=== PATIENT | female | born 1970 | race Caucasian/White ===

== ENCOUNTER 2017-03-12 09:09 | Emergency (ER) | payer BC ==
[2017-03-12] MEDS ORDERED: oxyCODONE/Acetamin 5/325 MG* TAB PO ONE (09:48)
--- NOTE | 2017-03-12 10:13 | RAD ---
HISTORY: Right forearm, COMPARISONS: None relevant VIEWS: 2, Frontal and lateral views of the right forearm FINDINGS: BONE DENSITY: Normal. BONES: There is no displaced fracture. JOINTS: There is no arthropathy. ALIGNMENT: There is no dislocation. SOFT TISSUES: Unremarkable. OTHER FINDINGS: None. IMPRESSION: NO ACUTE OSSEOUS INJURY. IF SYMPTOMS PERSIST, RECOMMEND REPEAT IMAGING.
--- NOTE | 2017-03-12 10:14 | RAD ---
HISTORY: Right forearm trauma COMPARISONS: None VIEWS: 4, Frontal, lateral, and oblique views of the right elbow FINDINGS: BONE DENSITY: Normal. BONES: There is no displaced fracture. JOINTS: There is no arthropathy. There is no posterior supracondylar fat pad to suggest a joint effusion. ALIGNMENT: There is no dislocation. SOFT TISSUES: Unremarkable. OTHER FINDINGS: None. IMPRESSION: NO ACUTE OSSEOUS INJURY. IF SYMPTOMS PERSIST, RECOMMEND REPEAT IMAGING.
--- NOTE | 2017-03-12 10:14 | RAD ---
HISTORY: Right forearm trauma COMPARISONS: None VIEWS: 3, Frontal, lateral, and oblique views of the right wrist FINDINGS: BONE DENSITY: Normal. BONES: There is no displaced fracture. JOINTS: There is no arthropathy. ALIGNMENT: There is no dislocation. SOFT TISSUES: Unremarkable. OTHER FINDINGS: None. IMPRESSION: NO ACUTE OSSEOUS INJURY. IF SYMPTOMS PERSIST, RECOMMEND REPEAT IMAGING.
--- NOTE | 2017-03-12 10:32 | ED ---
Upper Extremity Pain - HPI Summary HPI Summary: 46F presents with right arm injury s/p getting kicked by horse today. She states the she was bending down the horse kicked her right forearm. She state the pain is intense. She denies any previous fx to arm. She is right handed. She has old contusion from a week ago when a cow hit her humerus. She has limited ROM of arm due to pain. Her said she was wrenching from pain. He states he didn't see her pass out but states she might have passed out on bench from pain. The pt says she did not pass out. She states the only times she passes out is from pain. She denies any chest pain or SOB. She denies another injury. She states pain refers down to right hand. She has not taken anything for pain. - History of Current Complaint Chief Complaint: EDExtremityUpper Stated Complaint: RIGHT ARM INJURY KICKED BY HORSE Time Seen by Provider: 03/12/17 09:34 Hx Last Menstrual Period: post - Allergies/Home Medications Allergies/Adverse Reactions: Allergies Allergy/AdvReac Type Severity Reaction Status Date / Time No Known Allergies Allergy Verified 03/12/17 09:14 PMH/Surg Hx/FS Hx/Imm Hx Endocrine/Hematology History: Denies: Hx Anticoagulant Therapy Respiratory History: Reports: Hx Asthma - Cancer History Hx Chemotherapy: No Hx Radiation Therapy: No - Surgical History Surgery Procedure, Year, and Place: cyst right breast, bilat augmentation Infectious Disease History: No Infectious Disease History: Denies: Hx Clostridium Difficile, Hx Hepatitis, Hx Human Immunodeficiency Virus (HIV), Hx of Known/Suspected MRSA, Hx Shingles, Hx Tuberculosis, Hx Known/ Suspected VRE, Hx Known/Suspected VRSA, History Other Infectious Disease, Traveled Outside the [place] in Last 30 Days - Family History Known Family History: Positive: Cardiac Disease, Diabetes - Social History Alcohol Use: Weekly Alcohol Amount: beer Substance Use Type: Reports: None Smoking Status (MU): Never Smoked Tobacco Review of Systems Negative: Fever Negative: Chest Pain Negative: Shortness Of Breath Positive: Myalgia - right forearm Positive: Bruising - right arm All Other Systems Reviewed And Are Negative: Yes Physical Exam Triage Information Reviewed: Yes Vital Signs On Initial Exam: Initial Vitals Temp Pulse Resp BP Pulse Ox 98.0 F 81 18 129/88 100 03/12/17 09:15 03/12/17 09:15 03/12/17 09:15 03/12/17 09:15 03/12/17 09:15 Vital Signs Reviewed: Yes Appearance: Positive: Well-Appearing Skin: Positive: Warm, Dry Head/Face: Positive: Normal Head/Face Inspection Eyes: Positive: Normal, Conjunctiva Clear Respiratory/Lung Sounds: Positive: Clear to Auscultation, Breath Sounds Present Cardiovascular: Positive: Normal, RRR Musculoskeletal: Positive: Limited @ - elbow due pain, Edema Right - forearm, Other - no step off, neg snuff box tenderness, good pulses, capillary refill < 2 secs, greatest tenderness midforarm - Chelsie Coma Scale Coma Scale Total: 15 Diagnostics - Vital Signs Vital Signs Temp Pulse Resp BP Pulse Ox 03/12/17 10:10 20 03/12/17 09:37 12 03/12/17 09:35 133/79 03/12/17 09:15 98.0 F 81 18 129/88 100 - Laboratory Lab Results: Lab Results 03/12/17 Range/Units 10:12 POC Glucose (mg/dL) 90 (74-106) mg/dL Lab Statement: Any lab studies that have been ordered have been reviewed, and results considered in the medical decision making process. - Radiology wrist, elbow, forearm Xray Interpretation: No Acute Changes Radiology Interpretation Completed By: Radiologist - EKG No standard instances Cardiac Rate: NL EKG Rhythm: Sinus Rhythm Course/Dx - Course Course Of Treatment: 46F presents with right arm pain s/p getting kicked by horse in forearm. states is having extreme pain. says may have passed out. pt says did not and would have been from pain. discussed patient does not want potential syncope work up as states if passed out was from pain, did check finger stick glucose which was 90 as patient did not eat today, ekg normal. no step of felt on exam of arm, neurovascular intact, edema noted to right forearm. xray normal. will treat as contusion with RICE. patient understands and agrees with plan - Diagnoses Differential Diagnosis/HQI/PQRI: Positive: Contusion, Fracture (Closed), Strain , Sprain Provider Diagnoses: Contusion of right arm Discharge - Discharge Plan Condition: Good Disposition: HOME Prescriptions: oxyCODONE/Acetamin 5/325 MG* [Percocet 5/325 TAB*] 1 tab PO Q6H PRN #8 tab MDD 4 PRN Reason: Pain Patient Education Materials: Contusion in Adults (ED) Forms: *Work Release Referrals: Eliazar Cancino MD [Primary Care Provider] - Additional Instructions: Take ibuprofen for pain every 6 hours up to 800mg, take narcotic for break through pain Ice for next [address] heat and massage area Elevate, apply TISH to area, rest area Return to ED if develop any new or worsening symptoms
[2017-03-12 10:35] VITALS: BP 143/95
== END 2017-03-12 10:54 | disposition home or self-care (01) ==
LOC: ED 09:09
DX: S40.021A Contusion of right upper arm, initial encounter (principal); W55.12XA Struck by horse, initial encounter; Y93.9 Activity, unspecified; Y92.9 Unspecified place or not applicable
CPT/HCPCS: 93005; 99282; A9270-GY

== ENCOUNTER 2017-05-20 00:02 | Emergency (ER) | payer BC, OTHER ==
[2017-05-20 00:30] VITALS: BP 133/84
[2017-05-20 01:11] LABS: Hematocrit 40 % (35-47); Hemoglobin 13.6 g/dl (12.0-16.0); Mean Corpuscular HGB Conc 34 g/dl (31-36); Mean Corpuscular Hemoglobin 34 pg (27-31); Mean Corpuscular Volume 98 fL (80-97); Mean Platelet Volume 7 um3 (7.4-10.4); Red Blood Count 4.05 10^6/ul (4.0-5.4); Red Cell Distribution Width 13 % (10.5-15); White Blood Count 6.3 10^3/ul (3.5-10.8)
[2017-05-20 01:12] LABS: Urine Bilirubin Negative (Negative); Urine Glucose Negative (Negative); Urine Nitrite Negative (Negative)
[2017-05-20 01:20] LABS: ALT 13 U/L (7-52); AST 16 U/L (13-39); Albumin 4.1 g/dL (3.2-5.2); Alkaline Phosphatase 66 U/L (34-104); Anion Gap 9 mmol/L (2-11); Benzodiazepine Urine Screen None Detected (None Detect); Blood Urea Nitrogen 11 mg/dL (6-24); CO2 Carbon Dioxide 19 mmol/L (22-32); Calcium 8.7 mg/dL (8.6-10.3); Chloride 108 mmol/L (101-111); Creatine Kinase 123 U/L (10-223); EGFR African American 84.9 (>60); Globulin 2.9 g/dL (2-4); Glucose 92 mg/dL (70-100); Potassium 3.5 mmol/L (3.5-5.0); Sodium 136 mmol/L (133-145)
--- NOTE | 2017-05-20 01:21 | ED ---
Psychiatric Complaint - HPI Summary HPI Summary: 46F presents as 941. She states she found out that her was cheating on her again. The other girl showed up at her house and wouldn't leave. After she left she drank some ETOH and made sure her daughter was not coming home. She then proceeded to trash the house out of angry. She states this caused some letters from last year to be exposed that she had wrote the first time she found out that her was cheating on her. She states the were motivational letters but her daughter that they were sucidicial. She denies any SI/HI. She has pmh of anxiety which takes welbutrin. She took an ativan today too. She has never been hospitalized for psych reasons before. - History Of Current Complaint Chief Complaint: EDMentalHealth Time Seen by Provider: 05/20/17 00:34 Hx Last Menstrual Period: post - Allergies/Home Medications Allergies/Adverse Reactions: Allergies Allergy/AdvReac Type Severity Reaction Status Date / Time No Known Allergies Allergy Verified 05/20/17 00:26 PMH/Surg Hx/FS Hx/Imm Hx Endocrine/Hematology History: Denies: Hx Anticoagulant Therapy, Hx Diabetes, Hx Anemia Respiratory History: Reports: Hx Asthma GI History: Denies: Hx Jaundice - Cancer History Hx Chemotherapy: No Hx Radiation Therapy: No - Surgical History Surgery Procedure, Year, and Place: cyst right breast, bilat augmentation. uterine ablation - Immunization History Date of Tetanus Vaccine: utd Date of Influenza Vaccine: utd Infectious Disease History: No Infectious Disease History: Denies: Hx Clostridium Difficile, Hx Hepatitis, Hx Human Immunodeficiency Virus (HIV), Hx of Known/Suspected MRSA, Hx Shingles, Hx Tuberculosis, Hx Known/ Suspected VRE, Hx Known/Suspected VRSA, History Other Infectious Disease, Traveled Outside the [place] in Last 30 Days - Family History Known Family History: Positive: Cardiac Disease, Diabetes - Social History Alcohol Use: Occasionally Alcohol Amount: beer Substance Use Type: Reports: None Smoking Status (MU): Never Smoked Tobacco Review of Systems Negative: Fever Negative: Chest Pain Negative: Shortness Of Breath Positive: Other - anger All Other Systems Reviewed And Are Negative: Yes Physical Exam Triage Information Reviewed: Yes Vital Signs On Initial Exam: Initial Vitals Temp Pulse Resp BP Pulse Ox 97.5 F 88 18 142/100 99 05/20/17 00:07 05/20/17 00:07 05/20/17 00:07 05/20/17 00:07 05/20/17 00:07 Vital Signs Reviewed: Yes Appearance: Positive: Well-Appearing Skin: Positive: Warm, Dry Head/Face: Positive: Normal Head/Face Inspection Eyes: Positive: Normal, EOMI, GIA, Conjunctiva Clear ENT: Positive: Normal ENT inspection, Pharynx normal, TMs normal Respiratory/Lung Sounds: Positive: Clear to Auscultation, Breath Sounds Present Cardiovascular: Positive: Normal, RRR Abdomen Description: Positive: Nontender, Soft Bowel Sounds: Positive: Present - Chelsie Coma Scale Coma Scale Total: 15 Diagnostics - Vital Signs Vital Signs Temp Pulse Resp BP Pulse Ox 05/20/17 00:18 98.9 F 95 16 133/84 97 05/20/17 00:07 97.5 F 88 18 142/100 99 - Laboratory Lab Results: Lab Results 05/20/17 05/20/17 Range/Units 00:53 00:53 WBC 6.3 (3.5-10.8) 10^3/ul RBC 4.05 (4.0-5.4) 10^6/ul Hgb 13.6 (12.0-16.0) g/dl Hct 40 (35-47) % MCV 98 H (80-97) fL MCH 34 H (27-31) pg MCHC 34 (31-36) g/dl RDW 13 (10.5-15) % Plt Count 300 (150-450) 10^3/ul MPV 7 L (7.4-10.4) um3 Neut % (Auto) 58.1 (38-83) % Lymph % (Auto) 30.4 (25-47) % [place] % (Auto) 9.5 H (1-9) % Eos % (Auto) 1.2 (0-6) % Baso % (Auto) 0.8 (0-2) % Absolute Neuts (auto) 3.7 (1.5-7.7) 10^3/ul Absolute Lymphs (auto) 1.9 (1.0-4.8) 10^3/ul Absolute Monos (auto) 0.6 (0-0.8) 10^3/ul Absolute Eos (auto) 0.1 (0-0.6) 10^3/ul Absolute Basos (auto) 0 (0-0.2) 10^3/ul Absolute Nucleated RBC 0 10^3/ul Nucleated RBC % 0 Urine Color Colorless Urine Appearance Clear Urine pH 5.0 (5-9) Ur Specific [place] 1.002 L (1.010-1.030) Urine Protein Negative (Negative) Urine Ketones Negative (Negative) Urine Blood Negative (Negative) Urine Nitrate Negative (Negative) Urine Bilirubin Negative (Negative) Urine Urobilinogen Negative (Negative) Ur Leukocyte Esterase Negative (Negative) Urine Glucose Negative (Negative) Result Diagrams: 05/20/17 00:53 05/20/17 00:53 Lab Statement: Any lab studies that have been ordered have been reviewed, and results considered in the medical decision making process. Course/Dx - Course Course Of Treatment: 46F presents as 941. She states she found out that her was cheating on her again. The other girl showed up at her house and wouldn't leave. After she left she drank some ETOH and made sure her daughter was not coming home. She then proceeded to trash the house out of angry. She states this caused some letters from last year to be exposed that she had wrote the first time she found out that her was cheating on her. She states the were motivational letters but her daughter that they were sucidicial. She denies any SI/HI. She has pmh of anxiety which takes welbutrin. She took an ativan today too. She has never been hospitalized for psych reasons before. clear for [facility]. signed out to dr sylvester pending E. - Differential Dx/Clinical Impression Differential Diagnosis/HQI/PQRI: Positive: Anxiety, Depression, Suicidal Ideation Provider Diagnosis: Persistent mood [affective] disorder, unspecified Discharge - Discharge Plan Condition: Stable Disposition: OTHER Discharge Disposition Comment: signed out dr sylvester pending [facility] Referrals: Eliazar Cancino MD [Primary Care Provider] -
[2017-05-20 01:33] LABS: Acetaminophen < 15 mcg/mL; Alcohol 109 mg/dL (<10); Salicylate < 2.50 mg/dL (<30)
[2017-05-20 01:43] LABS: TSH (Thyroid Stimulating Horm) 2.09 mcIU/mL (0.34-5.60)
== END 2017-05-20 04:33 | disposition home or self-care (01) ==
LOC: ED 00:02
DX: F34.9 Persistent mood [affective] disorder, unspecified (principal)
CPT/HCPCS: 36415; 80053; 80307; 80320; 80329; 81003; 82550; 84443; 84702; 85025; 99282; G0480